=== PATIENT | male | born 1965 | race American Indian/Alaskan Native ===

== ENCOUNTER 2019-04-27 09:58 | Emergency (ER) | payer OTHER ==
[2019-04-27 10:03] VITALS: BP 120/75
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
== END 2019-04-27 10:56 | disposition home or self-care (01) ==
LOC: ED 09:58
DX: T16.2XXA Foreign body in left ear, initial encounter (principal); I10 Essential (primary) hypertension; F17.200 Nicotine dependence, unspecified, uncomplicated; X58.XXXA Exposure to other specified factors, initial encounter; Y93.89 Activity, other specified; Y92.89 Other specified places as the place of occurrence of the external cause; Y99.8 Other external cause status
CPT/HCPCS: 99282